=== PATIENT | female | born 1970 | race American Indian/Alaskan Native ===

== ENCOUNTER 2021-12-31 07:52 | Emergency (ER) | payer SELFPAY ==
--- NOTE | 2021-12-31 08:21 | Emergency Department Report ---
ED Upper Extremity Inj HPI - General Stated Complaint: LT THUMB PAIN Time Seen by Provider: 12/31/21 08:21 Source: patient Mode of arrival: Ambulatory Limitations: No Limitations - History of Present Illness Initial Comments: 51-year-old comes in with left thumb pain. She is getting ready to go on vacation and she was concerned that her hand is feeling worse not better. She i njured it over a week ago. She is unclear on exactly how she injured it. She is very vague. She denies any other injury. She is neurovascularly intact. She has full range of motion of the hand. Full range of motion of the wrist. She is ambulatory nontoxic [id number] to the ER MD Complaint: Injury to:: left, finger -: Sudden Other Injuries: none Place: home Improves With: none Worsens With: none Associated Symptoms: denies other symptoms ED Review of Systems ROS: Stated complaint: LT THUMB PAIN Other details as noted in HPI Comment: All other systems reviewed and negative ED Past Medical Hx - Past Medical History Previous Medical History?: No - Surgical History Past Surgical History?: No - Family History Family history: no significant - Social History Smoking Status: Never Smoker ED Physical Exam - General General appearance: alert, in no apparent distress - Head Head exam: Present: atraumatic, normocephalic - Eye Eye exam: Present: normal appearance - ENT ENT exam: Present: mucous membranes moist - Neck Neck exam: Present: normal inspection - Respiratory Respiratory exam: Present: normal lung sounds bilaterally. Absent: respiratory distress - Cardiovascular Cardiovascular Exam: Present: regular rate, normal rhythm. Absent: systolic murmur, diastolic murmur, rubs, gallop - GI/Abdominal GI/Abdominal exam: Present: soft, normal bowel sounds - Extremities Exam Extremities exam: Present: normal inspection - Back Exam Back exam: Present: normal inspection - Neurological Exam Neurological exam: Present: alert, oriented X3 - Psychiatric Psychiatric exam: Present: normal affect, normal mood - Skin Skin exam: Present: warm, dry, intact, normal color. Absent: rash ED Course Vital Signs 12/31/21 12/31/21 08:20 08:23 Temperature 98.9 F Pulse Rate 75 Respiratory 14 Rate Blood Pressure 148/95 O2 Sat by Pulse 98 Oximetry ED Medical Decision Making - Medical Decision Making Patient left prior to x-ray. Vital Signs 12/31/21 12/31/21 08:20 08:23 Temperature 98.9 F Pulse Rate 75 Respiratory 14 Rate Blood Pressure 148/95 O2 Sat by Pulse 98 Oximetry Critical care attestation.: If time is entered above; I have spent that time in minutes in the direct care of this critically ill patient, excluding procedure time. ED Disposition Clinical Impression: Thumb pain Disposition: 07 LEFT AWOL/ELOPED Is pt being admited?: No Does the pt Need Aspirin: No Condition: Stable Time of Disposition: 16:20
[2021-12-31 08:22] VITALS: BP 148/95
== END 2021-12-31 10:00 | disposition left against medical advice (07) ==
LOC: ED 07:52
DX: M79.645 Pain in left finger(s) (principal)
CPT/HCPCS: 99281